=== PATIENT | female | born 1975 | race Two or more races ===

== ENCOUNTER 2017-09-03 15:55 | Emergency (ER) | payer SELFPAY ==
[2017-09-03 16:27] LABS: BASOPHILS 0.3 % (0-2); HEMATOCRIT 42.1 % (36.0-48.0); HEMOGLOBIN 14.6 g/dL (12-16); IMMATURE GRANULOCYTES 0.2 % (0-5); LYMPHOCYTES 28.6 % (15-50); MCH 29.8 pg (26.0-34.0); MCHC 34.7 g/dL (31.0-37.0); MCV 85.9 fL (80.0-100.0); MEAN PLATELET VOLUME 13.6 fL (7.4-10.4); MONOCYTES 5.7 % (2-11); NEUTROPHILS 63.2 % (40-80); PLATELET COUNT 190 10x3/uL (130-400); RDW 12.4 % (11.5-14.5); WBC 9.2 10x3/uL (4.8-10.8)
[2017-09-03 16:43] LABS: ALBUMIN 3.5 g/dL (3.4-5.0); ALKALINE PHOSPHATASE 75 U/L (46-116); ALT (SGPT) 34 U/L (10-68); BILIRUBIN - TOTAL 0.42 mg/dL (0.2-1.3); CALC OSMOLALITY 277 mosm/kg (275-300); CARBON DIOXIDE 26.6 mmol/L (21.0-32.0); CHLORIDE - SERUM 101 mmol/L (98-107); CREATININE - SERUM 0.5 mg/dL (0.6-1.3); GLUCOSE 183 mg/dL (74-106); POTASSIUM - SERUM 3.3 mmol/L (3.5-5.1); PROTEIN - SERUM 7.3 g/dL (6.4-8.2); SODIUM 137 mmol/L (136-145); UREA NITROGEN 9 mg/dL (7-18); eGFR NON AFRICAN AMERICAN > 90 mL/min (90-120)
[2017-09-03 16:45] LABS: CREATINE KINASE 63 UL (21-215)
[2017-09-03 16:46] LABS: TROPONIN-I < 0.017 ng/mL (0.000-0.060)
== END 2017-09-03 18:59 | disposition home or self-care (01) ==
LOC: D.ER 15:55
PROVIDERS: Nurse Practitioner Family
DX: R42 Dizziness and giddiness (principal); F41.9 Anxiety disorder, unspecified; R51 Headache

== ENCOUNTER 2017-09-05 16:05 | Emergency (ER) | payer SELFPAY | END 2017-09-05 18:26 | disposition home or self-care (01) | LOC: D.ER 16:05 | DX: M54.5 Low back pain (principal); S39.012A Strain of muscle, fascia and tendon of lower back, initial encounter; W01.0XXA Fall on same level from slipping, tripping and stumbling without subsequent striking against object, initial encounter; Y93.89 Activity, other specified; Y92.89 Other specified places as the place of occurrence of the external cause; S83.92XA Sprain of unspecified site of left knee, initial encounter ==

== ENCOUNTER 2019-10-02 18:33 | Emergency (ER) | payer SELFPAY ==
[~2019-10-02] VITALS: Ht 154.9 cm; Wt 84.1 kg
[2019-10-02 18:41] VITALS: Ht 154.9 cm; Wt 84.1 kg
[2019-10-02] MEDS ORDERED: TAMIFLU75 MG PO ×2 (21:36→21:38)
[2019-10-02] MEDS ORDERED: MUCINEX DM ER1 EAC1 PO ×2 (21:36→21:38)
[2019-10-02 22:10] VITALS: BP 157/84
== END 2019-10-02 22:10 | disposition home or self-care (01) ==
LOC: D.ER 18:33
DX: J11.1 Influenza due to unidentified influenza virus with other respiratory manifestations (principal)